=== PATIENT | male | born 1940 | race Caucasian/White ===

== ENCOUNTER 2018-04-11 17:31 | Emergency (ER) | payer MEDICARE ==
[2018-04-11 18:13] LABS: ADD MAN DIFF? NO
[2018-04-11 18:16] LABS: BASO # 0.1 x10^3/uL (0.0-0.2); BASO % 0 % (0-3); EOS # 0.1 x10^3/uL (0.0-0.7); EOS % 1 % (0-3); HEMATOCRIT 38.3 % (39.0-53.0); HEMOGLOBIN 13.2 g/dL (13.0-17.5); LYMPH # 1.7 x10^3/uL (1.0-4.8); LYMPH % 14 % (24-48); MEAN CORPUSCULAR HEMOGLOBIN 32 pg (25-35); MEAN CORPUSCULAR HGB CONC 34 g/dL (31-37); MEAN CORPUSCULAR VOLUME 94 fL (79-100); MONO # 0.8 x10^3/uL (0.0-1.1); MONO % 7 % (0-9); NEUT # 9.6 x10^3uL (1.8-7.7); NEUT % 78 % (31-73); PLATELET COUNT 195 x10^3/uL (140-400); RED BLOOD COUNT 4.06 x10^6/uL (4.30-5.70); RED CELL DISTRIBUTION WIDTH 12.7 % (11.5-14.5); WHITE BLOOD COUNT 12.3 x10^3/uL (4.0-11.0)
[2018-04-11 18:28] LABS: INR 1.1 (0.8-1.1); PROTHROMBIN TIME PATIENT 13.7 SEC (11.7-14.0)
[2018-04-11 18:32] LABS: ANION GAP 6 (6-14); BLOOD UREA NITROGEN 16 mg/dL (8-26); BUN/CREATININE RATIO 18 (6-20); CALCIUM 8.4 mg/dL (8.5-10.1); CARBON DIOXIDE 30 mmol/L (21-32); CHLORIDE 102 mmol/L (98-107); CREATININE 0.9 mg/dL (0.7-1.3); GFR 81.4; GLUCOSE 101 mg/dL (70-99); SODIUM 138 mmol/L (136-145)
[2018-04-11 18:39] LABS: TROPONINI < 0.017 ng/mL (0.000-0.055)
[2018-04-11 18:39] LABS: ALBUMIN 3.7 g/dL (3.4-5.0); ALBUMIN/GLOBULIN RATIO 1.2 (1.0-1.7); ALK PHOS 56 U/L (46-116); ALT (SGPT) 23 U/L (16-63); AST (SGOT) 13 U/L (15-37); TOTAL BILIRUBIN 0.4 mg/dL (0.2-1.0); TOTAL PROTEIN 6.7 g/dL (6.4-8.2)
[2018-04-11] MEDS: IV NORMAL SALINE 1000ML BAG 1,000 ML IV (19:45)
[2018-04-11 23:01] LABS: BILIRUBIN,URINE NEGATIVE (NEG); CLARITY,URINE CLEAR; GLUCOSE,URINE NEGATIVE (NEG); NITRITE,URINE NEGATIVE (NEG); PROTEIN,URINE NEGATIVE (NEG-TRACE); UROBILINOGEN,URINE 0.2 mg/dL (0.2 mg/dL)
[2018-04-11 23:06] LABS: COLOR,URINE STRAW
[2018-04-11 23:08] LABS: TROPONINI < 0.017 ng/mL (0.000-0.055)
[2018-04-11 23:08] LABS: BACTERIA,URINE 0 /HPF (0-FEW); RBC,URINE OCC /HPF (0-2); SQUAMOUS EPITHELIAL CELL,UR OCC /LPF; WBC,URINE 0 /HPF (0-4)
[2018-04-12 07:06] LABS: NEGATIVE OBC STREP NEG; POSITIVE OBC STREP POS
== END 2018-04-11 23:37 | disposition home or self-care (01) ==
LOC: ER 17:31
DX: R07.89 Other chest pain (principal); R50.9 Fever, unspecified; M25.512 Pain in left shoulder; I10 Essential (primary) hypertension; E11.9 Type 2 diabetes mellitus without complications; I25.10 Atherosclerotic heart disease of native coronary artery without angina pectoris
CPT/HCPCS: 36415; 71045; 80053; 81001; 84484; 85025; 85610; 87070; 87880; 93005; 99285-25; J7030

== ENCOUNTER 2019-07-05 22:02 | Inpatient (IN) | payer MEDICARE ==
[~2019-07-05] VITALS: Ht 162.6 cm; Wt 63.7 kg
[~2019-07-05 22:02] MED LIST: ASPI-482 PO; CHOL100013 PO; LEVE500T56 PO; METO-239 PO; OMEG500C PO; PANT40TA77 PO
[2019-07-05 23:27] LABS: BASO % 1 % (0-3); EOS # 0.1 x10^3/uL (0.0-0.7); EOS % 3 % (0-3); HEMATOCRIT 32.3 % (39.0-53.0); HEMOGLOBIN 11.3 g/dL (13.0-17.5); LYMPH # 1.4 x10^3/uL (1.0-4.8); LYMPH % 29 % (24-48); MEAN CORPUSCULAR HEMOGLOBIN 33 pg (25-35); MEAN CORPUSCULAR HGB CONC 35 g/dL (31-37); MEAN CORPUSCULAR VOLUME 94 fL (79-100); MONO # 0.5 x10^3/uL (0.0-1.1); MONO % 9 % (0-9); NEUT # 2.9 x10^3/uL (1.8-7.7); NEUT % 59 % (31-73); PLATELET COUNT 205 x10^3/uL (140-400); RED BLOOD COUNT 3.45 x10^6/uL (4.30-5.70); RED CELL DISTRIBUTION WIDTH 12.5 % (11.5-14.5)
[2019-07-05 23:35] LABS: CALCIUM 8.5 mg/dL (8.5-10.1); CREATININE 1.1 mg/dL (0.7-1.3); GFR 64.4; PROTHROMBIN TIME PATIENT 14.2 SEC (11.7-14.0)
[2019-07-05 23:40] LABS: ALBUMIN 3.2 g/dL (3.4-5.0); ALBUMIN/GLOBULIN RATIO 1.2 (1.0-1.7); TOTAL BILIRUBIN 0.1 mg/dL (0.2-1.0); TOTAL PROTEIN 5.8 g/dL (6.4-8.2)
--- NOTE | 2019-07-05 23:43 | PHYS DOC ---
Past Medical History Past Medical History: CAD, Diabetes-Type II, Hypertension, Seizure Past Surgical History: Other Additional Past Surgical Histo: Prostate Alcohol Use: None Drug Use: None Adult General Chief Complaint Chief Complaint: RECTAL BLEED HPI HPI Patient is an 79-year-old very active male who is normally very healthy presents tonight with rectal bleeding. He states he had 2 large bright red blood bowel movements earlier in the day and then 2 more this evening. He denies any pain. H e denies any nausea or vomiting. He states that this is never happened in the past. He states he feels his stomach grumbling but again there is no pain. He denies any chest pain or shortness of breath. He has not had any episodes where he feels lightheaded. 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.[] Review of Systems Review of Systems Constitutional: Denies fever or chills [] Eyes: Denies change in visual acuity, redness, or eye pain [] HENT: Denies nasal congestion or sore throat [] Respiratory: Denies cough or shortness of breath [] Cardiovascular: No additional information not addressed in HPI [] GI: Per history of present illness[] : Denies dysuria or hematuria [] Musculoskeletal: Denies back pain or joint pain [] Integument: Denies rash or skin lesions [] Neurologic: Denies headache, focal weakness or sensory changes [] Endocrine: Denies polyuria or polydipsia [] All other systems were reviewed and found to be within normal limits, except as documented in this note. Current Medications Current Medications Current Medications Medications (Trade) Dose Ordered Sig/Everardo Start Time Stop Time Status Last Admin Dose Admin Ondansetron HCl (Zofran) 4 mg PRN Q8HRS PRN 07/05/19 23:45 07/06/19 23:44 UNV Sodium Chloride 1,000 ml @ 125 mls/hr Q8H 07/05/19 23:35 07/06/19 23:34 UNV Allergies Allergies Allergies Coded Allergies Type Severity Reaction Last Updated Verified No Known Drug Allergies 09/03/15 No Physical Exam Physical Exam Constitutional: Well developed, well nourished, no acute distress, non-toxic appearance. [] HENT: Normocephalic, atraumatic, bilateral external ears normal, oropharynx moist, no oral exudates, nose normal. [] Eyes: PERRLA, EOMI, conjunctiva normal, no discharge. [] Neck: Normal range of motion, no tenderness, supple, no stridor. [] Cardiovascular:Heart rate regular rhythm, no murmur [] Lungs & Thorax: Bilateral breath sounds clear to auscultation [] Abdomen: Bowel sounds normal, soft, no tenderness, no masses, no pulsatile masses, there are no external hemorrhoids that I could see he did have quite a bit of bright red blood oozing from the rectum. [] Skin: Warm, dry, no erythema, no rash. [] Back: No tenderness, no CVA tenderness. [] Extremities: No tenderness, no cyanosis, no clubbing, ROM intact, no edema. [] Neurologic: Alert and oriented X 3, normal motor function, normal sensory fu nction, no focal deficits noted. [] Psychologic: Affect normal, judgement normal, mood normal. [] Current Patient Data Vital Signs Vital Signs Date Time Temp Pulse Resp B/P (MAP) Pulse Ox O2 Delivery O2 Flow Rate FiO2 07/05/19 22:13 98.2 64 12 128/68 (88) 97 Room Air 98.2 Lab Values Laboratory Tests Test 07/05/19 23:15 White Blood Count 5.0 x10^3/uL (4.0-11.0) Red Blood Count 3.45 x10^6/uL (4.30-5.70) L Hemoglobin 11.3 g/dL (13.0-17.5) L Hematocrit 32.3 % (39.0-53.0) L Mean Corpuscular Volume 94 fL (79-100) Mean Corpuscular Hemoglobin 33 pg (25-35) Mean Corpuscular Hemoglobin Concent 35 g/dL (31-37) Red Cell Distribution Width 12.5 % (11.5-14.5) Platelet Count 205 x10^3/uL (140-400) Neutrophils (%) (Auto) 59 % (31-73) Lymphocytes (%) (Auto) 29 % (24-48) Monocytes (%) (Auto) 9 % (0-9) Eosinophils (%) (Auto) 3 % (0-3) Basophils (%) (Auto) 1 % (0-3) Neutrophils # (Auto) 2.9 x10^3/uL (1.8-7.7) Lymphocytes # (Auto) 1.4 x10^3/uL (1.0-4.8) Monocytes # (Auto) 0.5 x10^3/uL (0.0-1.1) Eosinophils # (Auto) 0.1 x10^3/uL (0.0-0.7) Basophils # (Auto) 0.0 x10^3/uL (0.0-0.2) Prothrombin Time 14.2 SEC (11.7-14.0) H Prothrombin Time INR 1.1 (0.8-1.1) Sodium Level 143 mmol/L (136-145) Potassium Level 4.0 mmol/L (3.5-5.1) Chloride Level 107 mmol/L (98-107) Carbon Dioxide Level 29 mmol/L (21-32) Anion Gap 7 (6-14) Blood Urea Nitrogen 20 mg/dL (8-26) Creatinine 1.1 mg/dL (0.7-1.3) Estimated GFR (Cockcroft-Gault) 64.4 BUN/Creatinine Ratio 18 (6-20) Glucose Level 139 mg/dL (70-99) H Calcium Level 8.5 mg/dL (8.5-10.1) Total Bilirubin Pending Aspartate Amino Transferase (AST) Pending Alanine Aminotransferase (ALT) Pending Alkaline Phosphatase Pending Total Protein Pending Albumin Pending Albumin/Globulin Ratio Pending Laboratory Tests 07/05/19 23:15 Laboratory Tests 07/05/19 23:15 EKG EKG [] Radiology/Procedures Radiology/Procedures [] Course & Med Decision Making Course & Med Decision Making Pertinent Labs and Imaging studies reviewed. (See chart for details) [ED course: Evaluation reveals a 79-year-old male with rectal bleeding. His vital signs and H&H appear okay patient will need to be admitted with GI consult. We'll recheck his hemoglobin and hematocrit in the morning. I suspect he'll have a colonoscopy to definitively determine the source of bleeding.] Dragon Disclaimer Dragon Disclaimer This electronic medical record was generated, in whole or in part, using a voice recognition dictation system. Departure Departure Impression: Primary Impression: GI bleed Disposition: ADMITTED INPATIENT Admitting Physician: MARKELL Condition: GUARDED Referrals: FOUNTAIN,SEVERINO A MD (PCP) Problem Qualifiers Primary Impression: GI bleed GI bleed type/associated pathology: anorectal hemorrhage Qualified Codes: K62.5 - Hemorrhage of anus and rectum EVETTE WEISS DO Jul 05, 2019 23:43
[2019-07-05] MEDS ORDERED: ONDANSETRON PF 4 MG/2 ML VIAL. IV PRN (23:45)
[2019-07-06] MEDS: IV NORMAL SALINE 1000ML BAG 1,000 ML IV SCH ×3 (00:15→20:49)
--- NOTE | 2019-07-06 00:55 | NUR ---
The patient, BASHIR MAYORGA, 79 y/o, M admitted by TANIA MENCHACA III, DO, was given written information regarding hospital policies, unit procedures and contact persons. Patient arrived to room by Wheelchair at this time assisted by ED staff member. Valuables were checked and noted. Family present at bedside. Patient is in bed watching TV, states no needs at this time. This RN will continue to monitor the patient at this time.
[2019-07-06] MEDS ORDERED: SIMV10TA15 PO (01:33)
[2019-07-06] MEDS ORDERED: MULT-475 PO (01:33)
[2019-07-06] MEDS ORDERED: GARL10002 PO (01:33)
[2019-07-06] MEDS ORDERED: ASPI-612 PO (01:33)
[2019-07-06 03:00] VITALS: BP 125/65
[2019-07-06 05:35] LABS: BASO % 1 % (0-3); EOS # 0.2 x10^3/uL (0.0-0.7); EOS % 4 % (0-3); HEMATOCRIT 28.8 % (39.0-53.0); HEMOGLOBIN 10.1 g/dL (13.0-17.5); LYMPH # 1.5 x10^3/uL (1.0-4.8); LYMPH % 35 % (24-48); MEAN CORPUSCULAR HEMOGLOBIN 33 pg (25-35); MEAN CORPUSCULAR HGB CONC 35 g/dL (31-37); MEAN CORPUSCULAR VOLUME 93 fL (79-100); MONO # 0.4 x10^3/uL (0.0-1.1); MONO % 10 % (0-9); NEUT # 2.2 x10^3/uL (1.8-7.7); NEUT % 51 % (31-73); PLATELET COUNT 187 x10^3/uL (140-400); RED BLOOD COUNT 3.09 x10^6/uL (4.30-5.70); RED CELL DISTRIBUTION WIDTH 12.6 % (11.5-14.5); WHITE BLOOD COUNT 4.3 x10^3/uL (4.0-11.0)
[2019-07-06 07:00] VITALS: BP 110/59
--- NOTE | 2019-07-06 09:12 | PDOC2 ---
GI CONSULT Reason For Consult: Rectal bleeding HPI: HPI: Pleasant 79 y/o male admitted through ER. 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 Then went home and barely made it to the restroom - passed significant amount of bright red blood. Lots of "gurgling." Recurred 3 more times - perhaps once with stool. No bleeding since 9:30 p.m. yesterday. Denies n/v, reflux/heartb urn, dysphagia, abd pain, diarrhea, constipation, change in appetite, or weight loss. Takes ASA 81mg QD. Colonoscopy 05/2014 for hematochezia/melena, h/o colon polyps (Dr. Waller): normal mucosa noted in the whole colon, 3mm adenomatous polyp in proximal descending colon, sigmoid and descending colon diverticulosis (moderate severity), GRade 1 internal hemorrhoids. EGD 08/2015 for melena (Dr. Cedeno): M-W tear, small hiatal hernia, normal duodenum. No GB, liver, pancreas, or PUD history. Hgb 11.3 to 10.1, normal INR and BUN. PMH: PMH: CAD, ERIS, DM, BPH, OA, seizure corneal surgery, TURP, vasectomy, cataracts FH: Family History: Cancer (colon - mother), CAD, DM, Other (Crohn's - mother) Social History: Smoke: No ALCOHOL: none ROS: GEN: Denies fevers, chills, sweats HEENT: Denies blurred vision, sore throat CV: Denies chest pain RESP: Denies shortness of air, cough GI: Per HPI : Denies hematuria, dysuria ENDO: Denies weight changes NEURO: Denies confusion, dizziness MSK: Denies weakness, joint pain/swelling SKIN: Denies jaundice, pruritus Vitals: Vitals: Vital Signs Date Time Temp Pulse Resp B/P (MAP) Pulse Ox O2 Delivery O2 Flow Rate FiO2 07/06/19 03:00 98.6 61 18 125/65 (85) 95 Room Air 98.6 Labs: Labs: Laboratory Tests Test 07/05/19 23:15 07/06/19 03:30 White Blood Count 5.0 x10^3/uL (4.0-11.0) 4.3 x10^3/uL (4.0-11.0) Red Blood Count 3.45 x10^6/uL (4.30-5.70) 3.09 x10^6/uL (4.30-5.70) Hemoglobin 11.3 g/dL (13.0-17.5) 10.1 g/dL (13.0-17.5) Hematocrit 32.3 % (39.0-53.0) 28.8 % (39.0-53.0) Mean Corpuscular Volume 94 fL (79-100) 93 fL (79-100) Mean Corpuscular Hemoglobin 33 pg (25-35) 33 pg (25-35) Mean Corpuscular Hemoglobin Concent 35 g/dL (31-37) 35 g/dL (31-37) Red Cell Distribution Width 12.5 % (11.5-14.5) 12.6 % (11.5-14.5) Platelet Count 205 x10^3/uL (140-400) 187 x10^3/uL (140-400) Neutrophils (%) (Auto) 59 % (31-73) 51 % (31-73) Lymphocytes (%) (Auto) 29 % (24-48) 35 % (24-48) Monocytes (%) (Auto) 9 % (0-9) 10 % (0-9) Eosinophils (%) (Auto) 3 % (0-3) 4 % (0-3) Basophils (%) (Auto) 1 % (0-3) 1 % (0-3) Neutrophils # (Auto) 2.9 x10^3/uL (1.8-7.7) 2.2 x10^3/uL (1.8-7.7) Lymphocytes # (Auto) 1.4 x10^3/uL (1.0-4.8) 1.5 x10^3/uL (1.0-4.8) Monocytes # (Auto) 0.5 x10^3/uL (0.0-1.1) 0.4 x10^3/uL (0.0-1.1) Eosinophils # (Auto) 0.1 x10^3/uL (0.0-0.7) 0.2 x10^3/uL (0.0-0.7) Basophils # (Auto) 0.0 x10^3/uL (0.0-0.2) 0.0 x10^3/uL (0.0-0.2) Prothrombin Time 14.2 SEC (11.7-14.0) Prothromb Time International Ratio 1.1 (0.8-1.1) Sodium Level 143 mmol/L (136-145) Potassium Level 4.0 mmol/L (3.5-5.1) Chloride Level 107 mmol/L (98-107) Carbon Dioxide Level 29 mmol/L (21-32) Anion Gap 7 (6-14) Blood Urea Nitrogen 20 mg/dL (8-26) Creatinine 1.1 mg/dL (0.7-1.3) Estimated GFR (Cockcroft-Gault) 64.4 BUN/Creatinine Ratio 18 (6-20) Glucose Level 139 mg/dL (70-99) Calcium Level 8.5 mg/dL (8.5-10.1) Total Bilirubin 0.1 mg/dL (0.2-1.0) Aspartate Amino Transf (AST/SGOT) 16 U/L (15-37) Alanine Aminotransferase (ALT/SGPT) 18 U/L (16-63) Alkaline Phosphatase 62 U/L (46-116) Total Protein 5.8 g/dL (6.4-8.2) Albumin 3.2 g/dL (3.4-5.0) Albumin/Globulin Ratio 1.2 (1.0-1.7) Allergies: Coded Allergies: No Known Drug Allergies (Unverified , 09/03/15) Medications: Current Medications Medications (Trade) Dose Ordered Sig/Everardo Route PRN Reason Start Time Stop Time Status Last Admin Dose Admin Sodium Chloride 1,000 ml @ 125 mls/hr Q8H IV 07/05/19 23:45 07/06/19 23:44 07/06/19 00:15 PE: GEN: NAD HEENT: Atraumatic, PERRL LUNGS: CTAB HEART: RRR ABD: NABS, S/ND/NT EXTREMITY: No edema SKIN: No rashes, no jaundice NEURO/PSYCH: A & O 3 A/P: A/P: Hematochezia Anemia CRC screen, h/o adenomatous polyps - last colonoscopy 2013 Diverticulosis, hemorrhoids H/o CAD on ASA -- ?diverticular bleed - no abd imaging here but known diverticulosis from previous colonoscopy. No bleeding for ~12 hours - okay to observe for now. Consider clear liquids, monitor Hgb. If bleeding recurs, check bleeding scan. Empiric PPI, hold ASA. SANDRA BREWER Jul 06, 2019 09:12
--- NOTE | 2019-07-06 10:06 | PDOC1 ---
History and Physical Date of Admission Date of Admission DATE: 07/06/19 TIME: 10:05 Identification/Chief Complaint Chief Complaint seen in er , 2 large bright red blood bowel movements earlier in the day and then 2 more 07/05 . He denies any pain. He denies any nausea or vomiting. He states that this is never happened in the past. He states he feels his stomach grumbling but again there is no pain. He denies any chest pain or shortness of breath. He has not had any episodes where he feels lightheaded. Colonoscopy 05/2014 for hematochezia/melena, h/o colon polyps FEELING BETTER THIS AFTERNOON Past Medical History Past Medical History Past Medical History Past Medical History Past Medical History: CAD, Diabetes-Type II, Hypertension, Seizure Past Surgical History: Other Additional Past Surgical Histo: Prostate Alcohol Use: None Drug Use: None Pulmonary: Other CENTRAL NERVOUS SYSTEM: Seizure Musculoskeletal: Osteoarthritis Renal/: Benign prostatic enlarg. Endocrine: Diabetes Past Surgical History Past Surgical History: Other Family History Family History: Cancer, Coronary Artery Disease, Diabetes, High Cholestrol Social History Smoke: No ALCOHOL: none Drugs: None Current Problem List Problem List Problems Medical Problems: (1) GI bleed Status: Acute Current Medications Current Medications Current Medications Ondansetron HCl (Zofran) 4 mg PRN Q8HRS PRN IV NAUSEA/VOMITING; Start 07/05/19 at 23:45; Stop 07/06/19 at 23:44 Sodium Chloride 1,000 ml @ 125 mls/hr Q8H IV Last administered on 07/06/19at 09:17; Start 07/05/19 at 23:45; Stop 07/06/19 at 23:44 Pantoprazole Sodium (PROTONIX VIAL for IV PUSH) 40 mg DAILYAC IVP ; Start 07/07/19 at 07:30; Status UNV Active Scripts Active Reported Garlic 1,000 Mg Capsule 1,000 Mg PO DAILY One Daily Multivitamin (Multivitamin) 1 Each Tablet 1 Each PO DAILY Simvastatin 10 Mg Tablet 10 Mg PO DAILY Aspirin Ec (Aspirin) 81 Mg Tablet.dr 81 Mg PO DAILY Vitamin D (Cholecalciferol (Vitamin D3)) 1,000 Unit Capsule 1 Cap PO DAILY Keppra (Levetiracetam) 500 Mg Tablet 500 Mg PO BID Allergies Allergies: Coded Allergies: No Known Drug Allergies (Unverified , 09/03/15) ROS Review of System Review of Systems Review of Systems Constitutional: Denies fever or chills [] Eyes: Denies change in visual acuity, redness, or eye pain [] HENT: Denies nasal congestion or sore throat [] Respiratory: Denies cough or shortness of breath [] Cardiovascular: No additional information not addressed in HPI [] GI: Per history of present illness[] : Denies dysuria or hematuria [] Musculoskeletal: Denies back pain or joint pain [] Integument: Denies rash or skin lesions [] Neurologic: Denies headache, focal weakness or sensory changes [] Endocrine: Denies polyuria or polydipsia [] 14 pt systems were reviewed and found to be within normal limits, except as do cumented ALLERGY AND IMMUNOLOGY: No: Hives, Insect Bite Sensitivity, Itchy/Watery Eyes, Nasal Congestion, Post Nasal Drip, Seasonal Allergies, Other Gastrointestinal: Yes Melena Physical Exam Physical Exam Physical Exam Physical Exam Constitutional: Well developed, well nourished, no acute distress, non-toxic appearance. [] HENT: Normocephalic, atraumatic, bilateral external ears normal, oropharynx moist, no oral exudates, nose normal. [] Eyes: PERRLA, EOMI, conjunctiva normal, no discharge. [] Neck: Normal range of motion, no tenderness, supple, no stridor. [] Cardiovascular:Heart rate regular rhythm, no murmur [] Lungs & Thorax: Bilateral breath sounds clear to auscultation [] Abdomen: Bowel sounds normal, soft, no tenderness, no masses, no pulsatile masses, there are no external hemorrhoids that I could see he did have quite a bit of bright red blood oozing from the rectum. [] Skin: Warm, dry, no erythema, no rash. [] Back: No tenderness, no CVA tenderness. [] Extremities: No tenderness, no cyanosis, no clubbing, ROM intact, no edema. [] Neurologic: Alert and oriented X 3, normal motor function, normal sensory function, no focal deficits noted. [] Psychologic: Affect normal, judgement normal, mood normal. [] General: Alert, Oriented X3, Cooperative, No acute distress HEENT: EOMI, Mucous membr. moist/pink Lungs: Clear to auscultation, Normal air movement Abdomen: Soft Rectal Exam: not examined Extremities: No cyanosis Neuro: Cranial nerves 3-12 NL Psych/Mental Status: Mental status NL, Mood NL Vitals Vitals Vital Signs Date Time Temp Pulse Resp B/P (MAP) Pulse Ox O2 Delivery O2 Flow Rate FiO2 07/06/19 07:00 97.7 59 17 110/59 (76) 95 Room Air 97.7 Labs Labs Laboratory Tests Test 07/05/19 23:15 07/06/19 03:30 White Blood Count 5.0 x10^3/uL (4.0-11.0) 4.3 x10^3/uL (4.0-11.0) Red Blood Count 3.45 x10^6/uL (4.30-5.70) 3.09 x10^6/uL (4.30-5.70) Hemoglobin 11.3 g/dL (13.0-17.5) 10.1 g/dL (13.0-17.5) Hematocrit 32.3 % (39.0-53.0) 28.8 % (39.0-53.0) Mean Corpuscular Volume 94 fL (79-100) 93 fL (79-100) Mean Corpuscular Hemoglobin 33 pg (25-35) 33 pg (25-35) Mean Corpuscular Hemoglobin Concent 35 g/dL (31-37) 35 g/dL (31-37) Red Cell Distribution Width 12.5 % (11.5-14.5) 12.6 % (11.5-14.5) Platelet Count 205 x10^3/uL (140-400) 187 x10^3/uL (140-400) Neutrophils (%) (Auto) 59 % (31-73) 51 % (31-73) Lymphocytes (%) (Auto) 29 % (24-48) 35 % (24-48) Monocytes (%) (Auto) 9 % (0-9) 10 % (0-9) Eosinophils (%) (Auto) 3 % (0-3) 4 % (0-3) Basophils (%) (Auto) 1 % (0-3) 1 % (0-3) Neutrophils # (Auto) 2.9 x10^3/uL (1.8-7.7) 2.2 x10^3/uL (1.8-7.7) Lymphocytes # (Auto) 1.4 x10^3/uL (1.0-4.8) 1.5 x10^3/uL (1.0-4.8) Monocytes # (Auto) 0.5 x10^3/uL (0.0-1.1) 0.4 x10^3/uL (0.0-1.1) Eosinophils # (Auto) 0.1 x10^3/uL (0.0-0.7) 0.2 x10^3/uL (0.0-0.7) Basophils # (Auto) 0.0 x10^3/uL (0.0-0.2) 0.0 x10^3/uL (0.0-0.2) Prothrombin Time 14.2 SEC (11.7-14.0) Prothromb Time International Ratio 1.1 (0.8-1.1) Sodium Level 143 mmol/L (136-145) Potassium Level 4.0 mmol/L (3.5-5.1) Chloride Level 107 mmol/L (98-107) Carbon Dioxide Level 29 mmol/L (21-32) Anion Gap 7 (6-14) Blood Urea Nitrogen 20 mg/dL (8-26) Creatinine 1.1 mg/dL (0.7-1.3) Estimated GFR (Cockcroft-Gault) 64.4 BUN/Creatinine Ratio 18 (6-20) Glucose Level 139 mg/dL (70-99) Calcium Level 8.5 mg/dL (8.5-10.1) Total Bilirubin 0.1 mg/dL (0.2-1.0) Aspartate Amino Transf (AST/SGOT) 16 U/L (15-37) Alanine Aminotransferase (ALT/SGPT) 18 U/L (16-63) Alkaline Phosphatase 62 U/L (46-116) Total Protein 5.8 g/dL (6.4-8.2) Albumin 3.2 g/dL (3.4-5.0) Albumin/Globulin Ratio 1.2 (1.0-1.7) Laboratory Tests Test 07/05/19 23:15 07/06/19 03:30 White Blood Count 5.0 x10^3/uL (4.0-11.0) 4.3 x10^3/uL (4.0-11.0) Red Blood Count 3.45 x10^6/uL (4.30-5.70) 3.09 x10^6/uL (4.30-5.70) Hemoglobin 11.3 g/dL (13.0-17.5) 10.1 g/dL (13.0-17.5) Hematocrit 32.3 % (39.0-53.0) 28.8 % (39.0-53.0) Mean Corpuscular Volume 94 fL (79-100) 93 fL (79-100) Mean Corpuscular Hemoglobin 33 pg (25-35) 33 pg (25-35) Mean Corpuscular Hemoglobin Concent 35 g/dL (31-37) 35 g/dL (31-37) Red Cell Distribution Width 12.5 % (11.5-14.5) 12.6 % (11.5-14.5) Platelet Count 205 x10^3/uL (140-400) 187 x10^3/uL (140-400) Neutrophils (%) (Auto) 59 % (31-73) 51 % (31-73) Lymphocytes (%) (Auto) 29 % (24-48) 35 % (24-48) Monocytes (%) (Auto) 9 % (0-9) 10 % (0-9) Eosinophils (%) (Auto) 3 % (0-3) 4 % (0-3) Basophils (%) (Auto) 1 % (0-3) 1 % (0-3) Neutrophils # (Auto) 2.9 x10^3/uL (1.8-7.7) 2.2 x10^3/uL (1.8-7.7) Lymphocytes # (Auto) 1.4 x10^3/uL (1.0-4.8) 1.5 x10^3/uL (1.0-4.8) Monocytes # (Auto) 0.5 x10^3/uL (0.0-1.1) 0.4 x10^3/uL (0.0-1.1) Eosinophils # (Auto) 0.1 x10^3/uL (0.0-0.7) 0.2 x10^3/uL (0.0-0.7) Basophils # (Auto) 0.0 x10^3/uL (0.0-0.2) 0.0 x10^3/uL (0.0-0.2) Prothrombin Time 14.2 SEC (11.7-14.0) Prothromb Time International Ratio 1.1 (0.8-1.1) Sodium Level 143 mmol/L (136-145) Potassium Level 4.0 mmol/L (3.5-5.1) Chloride Level 107 mmol/L (98-107) Carbon Dioxide Level 29 mmol/L (21-32) Anion Gap 7 (6-14) Blood Urea Nitrogen 20 mg/dL (8-26) Creatinine 1.1 mg/dL (0.7-1.3) Estimated GFR (Cockcroft-Gault) 64.4 BUN/Creatinine Ratio 18 (6-20) Glucose Level 139 mg/dL (70-99) Calcium Level 8.5 mg/dL (8.5-10.1) Total Bilirubin 0.1 mg/dL (0.2-1.0) Aspartate Amino Transf (AST/SGOT) 16 U/L (15-37) Alanine Aminotransferase (ALT/SGPT) 18 U/L (16-63) Alkaline Phosphatase 62 U/L (46-116) Total Protein 5.8 g/dL (6.4-8.2) Albumin 3.2 g/dL (3.4-5.0) Albumin/Globulin Ratio 1.2 (1.0-1.7) Images Images PROCEDURE Procedure EGD Indication: Melena/syncope Meds: per anesthesia; see their record. Findings: E--GEJ at 39cm. Healing Yanci-Castro tear on lesser curve aspect of GE junction. G--Small hiatal hernia, otherwise normal. D--Normal to third portion. Tolerated well. Imp: Yanci-Castro syndrome Hiatal hernia. Rec: OK to dismiss. No other therapy needed. F/u with Dr. Waller when due for next surveillance colonoscopy, otherwise prn. Thanks. #[id number] KIMO VIEIRA MD Sep 03, 2015 12:10 SIGNED BY: KIMO VIEIRA MD DATE: 09/03/15 1210 VTE Prophylaxis Ordered VTE Prophylaxis Devices: Contraindicated VTE Pharmacological Prophylaxi: Contraindicated Assessment/Plan Assessment/Plan Impression: GI bleed, ACUTE HX COLON POLYPS Yanci-Castro syndrome 2015 Hiatal hernia. ADMITTED consult GI SERIAL H/H IV PROTONIX home meds, hold asa 55 MIN PT EXAM, CHART REVIEW, > 50% OF TIME SPENT WITH EXAM, CHART REVIEW, PT CARE COORDINATION JONN ARMSTRONG MD Jul 06, 2019 10:06
[2019-07-06 11:00] VITALS: BP 104/96
[2019-07-06] MEDS ORDERED: PANTOPRAZOLE IV PUSH 40 MG VIAL. IVP SCH (11:30)
--- NOTE | 2019-07-06 11:31 | NUR ---
SS following for discharge planning. SS reviewed pt chart. Pt is from home with spouse and is currently on room air. SS will continue to follow for discharge planning.
[2019-07-06 15:00] VITALS: BP 122/59
[2019-07-06 19:00] VITALS: BP 111/50
[2019-07-06] MEDS: levETIRAcetam 500 MG TABLET PO SCH (20:48)
[2019-07-06 23:00] VITALS: BP 118/60
[2019-07-07 03:00] VITALS: BP 110/58
--- NOTE | 2019-07-07 04:21 | NUR ---
Pt had 2 bloody stools during shift, one @ 2100 and the next was @ midnight. And a small amount of stool with blood @ 3am.
[2019-07-07 04:57] LABS: HEMATOCRIT 29.2 % (39.0-53.0); HEMOGLOBIN 10.1 g/dL (13.0-17.5); RED BLOOD COUNT 3.13 x10^6/uL (4.30-5.70); RED CELL DISTRIBUTION WIDTH 12.6 % (11.5-14.5)
[2019-07-07 05:16] LABS: CREATININE 0.6 mg/dL (0.7-1.3); GFR 129.6; POTASSIUM 3.7 mmol/L (3.5-5.1)
[2019-07-07] MEDS ORDERED: PANTOPRAZOLE 40 MG TABLET.DR. PO SCH (07:30)
[2019-07-07] MEDS ORDERED: MULTIVITAMIN with MINERAL TABLET. PO SCH (09:00)
[2019-07-07] MEDS ORDERED: CHOLECALCIFEROL (VITAMIN D3) 1,000 UNIT TABLET PO SCH (09:00)
[2019-07-07] MEDS ORDERED: SIMVASTATIN 10 MG TABLET PO SCH (09:00)
[2019-07-07] MEDS: levETIRAcetam 500 MG TABLET PO SCH (10:42)
--- NOTE | 2019-07-07 10:54 | PDOC ---
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 ACUTE BLOOD LOSS ANEMIA ADMITTED consult GI, home today if ok with GI SERIAL H/H IV PROTONIX home meds, hold asa "small amount of blood in stool this AM < A teaspoonful" 07/07 32 MIN PT EXAM, CHART REVIEW, > 50% OF TIME SPENT WITH EXAM, CHART REVIEW, PT CARE COORDINATION Vitals Vitals Vital Signs Date Time Temp Pulse Resp B/P (MAP) Pulse Ox O2 Delivery O2 Flow Rate FiO2 07/07/19 03:00 98.1 64 18 110/58 (75) 93 Room Air 98.1 Physical Exam General: Alert, Oriented X3, Cooperative, No acute distress Heart: Regular rate, Normal S1 Lungs: Clear Abdomen: Normal bowel sounds, Soft Extremities: No cyanosis, No edema Skin: No significant lesion Labs LABS Laboratory Tests Test 07/07/19 04:00 White Blood Count 5.0 x10^3/uL (4.0-11.0) Red Blood Count 3.13 x10^6/uL (4.30-5.70) Hemoglobin 10.1 g/dL (13.0-17.5) Hematocrit 29.2 % (39.0-53.0) Mean Corpuscular Volume 93 fL (79-100) Mean Corpuscular Hemoglobin 32 pg (25-35) Mean Corpuscular Hemoglobin Concent 35 g/dL (31-37) Red Cell Distribution Width 12.6 % (11.5-14.5) Platelet Count 172 x10^3/uL (140-400) Sodium Level 143 mmol/L (136-145) Potassium Level 3.7 mmol/L (3.5-5.1) Chloride Level 109 mmol/L (98-107) Carbon Dioxide Level 30 mmol/L (21-32) Anion Gap 4 (6-14) Blood Urea Nitrogen 9 mg/dL (8-26) Creatinine 0.6 mg/dL (0.7-1.3) Estimated GFR (Cockcroft-Gault) 129.6 Glucose Level 94 mg/dL (70-99) Calcium Level 8.0 mg/dL (8.5-10.1) Assessment and Plan Assessmemt and Plan Problems Medical Problems: (1) GI bleed Status: Acute Comment Review of Relevant I have reviewed the following items lindy (where applicable) has been applied. Labs Laboratory Tests Test 07/05/19 23:15 07/06/19 03:30 07/07/19 04:00 White Blood Count 5.0 x10^3/uL (4.0-11.0) 4.3 x10^3/uL (4.0-11.0) 5.0 x10^3/uL (4.0-11.0) Red Blood Count 3.45 x10^6/uL (4.30-5.70) 3.09 x10^6/uL (4.30-5.70) 3.13 x10^6/uL (4.30-5.70) Hemoglobin 11.3 g/dL (13.0-17.5) 10.1 g/dL (13.0-17.5) 10.1 g/dL (13.0-17.5) Hematocrit 32.3 % (39.0-53.0) 28.8 % (39.0-53.0) 29.2 % (39.0-53.0) Mean Corpuscular Volume 94 fL (79-100) 93 fL (79-100) 93 fL (79-100) Mean Corpuscular Hemoglobin 33 pg (25-35) 33 pg (25-35) 32 pg (25-35) Mean Corpuscular Hemoglobin Concent 35 g/dL (31-37) 35 g/dL (31-37) 35 g/dL (31-37) Red Cell Distribution Width 12.5 % (11.5-14.5) 12.6 % (11.5-14.5) 12.6 % (11.5-14.5) Platelet Count 205 x10^3/uL (140-400) 187 x10^3/uL (140-400) 172 x10^3/uL (140-400) Neutrophils (%) (Auto) 59 % (31-73) 51 % (31-73) Lymphocytes (%) (Auto) 29 % (24-48) 35 % (24-48) Monocytes (%) (Auto) 9 % (0-9) 10 % (0-9) Eosinophils (%) (Auto) 3 % (0-3) 4 % (0-3) Basophils (%) (Auto) 1 % (0-3) 1 % (0-3) Neutrophils # (Auto) 2.9 x10^3/uL (1.8-7.7) 2.2 x10^3/uL (1.8-7.7) Lymphocytes # (Auto) 1.4 x10^3/uL (1.0-4.8) 1.5 x10^3/uL (1.0-4.8) Monocytes # (Auto) 0.5 x10^3/uL (0.0-1.1) 0.4 x10^3/uL (0.0-1.1) Eosinophils # (Auto) 0.1 x10^3/uL (0.0-0.7) 0.2 x10^3/uL (0.0-0.7) Basophils # (Auto) 0.0 x10^3/uL (0.0-0.2) 0.0 x10^3/uL (0.0-0.2) Prothrombin Time 14.2 SEC (11.7-14.0) Prothromb Time International Ratio 1.1 (0.8-1.1) Sodium Level 143 mmol/L (136-145) 143 mmol/L (136-145) Potassium Level 4.0 mmol/L (3.5-5.1) 3.7 mmol/L (3.5-5.1) Chloride Level 107 mmol/L (98-107) 109 mmol/L (98-107) Carbon Dioxide Level 29 mmol/L (21-32) 30 mmol/L (21-32) Anion Gap 7 (6-14) 4 (6-14) Blood Urea Nitrogen 20 mg/dL (8-26) 9 mg/dL (8-26) Creatinine 1.1 mg/dL (0.7-1.3) 0.6 mg/dL (0.7-1.3) Estimated GFR (Cockcroft-Gault) 64.4 129.6 BUN/Creatinine Ratio 18 (6-20) Glucose Level 139 mg/dL (70-99) 94 mg/dL (70-99) Calcium Level 8.5 mg/dL (8.5-10.1) 8.0 mg/dL (8.5-10.1) Total Bilirubin 0.1 mg/dL (0.2-1.0) Aspartate Amino Transf (AST/SGOT) 16 U/L (15-37) Alanine Aminotransferase (ALT/SGPT) 18 U/L (16-63) Alkaline Phosphatase 62 U/L (46-116) Total Protein 5.8 g/dL (6.4-8.2) Albumin 3.2 g/dL (3.4-5.0) Albumin/Globulin Ratio 1.2 (1.0-1.7) Laboratory Tests Test 07/07/19 04:00 White Blood Count 5.0 x10^3/uL (4.0-11.0) Red Blood Count 3.13 x10^6/uL (4.30-5.70) Hemoglobin 10.1 g/dL (13.0-17.5) Hematocrit 29.2 % (39.0-53.0) Mean Corpuscular Volume 93 fL (79-100) Mean Corpuscular Hemoglobin 32 pg (25-35) Mean Corpuscular Hemoglobin Concent 35 g/dL (31-37) Red Cell Distribution Width 12.6 % (11.5-14.5) Platelet Count 172 x10^3/uL (140-400) Sodium Level 143 mmol/L (136-145) Potassium Level 3.7 mmol/L (3.5-5.1) Chloride Level 109 mmol/L (98-107) Carbon Dioxide Level 30 mmol/L (21-32) Anion Gap 4 (6-14) Blood Urea Nitrogen 9 mg/dL (8-26) Creatinine 0.6 mg/dL (0.7-1.3) Estimated GFR (Cockcroft-Gault) 129.6 Glucose Level 94 mg/dL (70-99) Calcium Level 8.0 mg/dL (8.5-10.1) Medications Current Medications Ondansetron HCl (Zofran) 4 mg PRN Q8HRS PRN IV NAUSEA/VOMITING; Start 07/05/19 at 23:45; Stop 07/06/19 at 23:44; Status DC Sodium Chloride 1,000 ml @ 125 mls/hr Q8H IV Last administered on 07/06/19 20:49; Start 07/05/19 at 23:45; Stop 07/06/19 at 23:44; Status DC Pantoprazole Sodium (PROTONIX VIAL for IV PUSH) 40 mg DAILYAC IVP Last administered on 07/06/19 12:46; Start 07/06/19 at 11:30; Stop 07/06/19 at 16:29; Status DC Levetiracetam (Keppra) 500 mg BID PO Last administered on 07/07/19 10:42; Start 07/06/19 at 21:00 Simvastatin (Zocor) 10 mg DAILY PO Last administered on 07/07/19 10:42; Start 07/07/19 at 09:00 Vitamin D (Vitamin D3) 1,000 unit DAILY PO Last administered on 07/07/19 10:42; Start 07/07/19 at 09:00 Multivitamins (Thera M Plus) 1 tab DAILY PO Last administered on 07/07/19 10:42; Start 07/07/19 at 09:00 Pantoprazole Sodium (Protonix) 40 mg DAILYAC PO Last administered on 07/07/19 07:25; Start 07/07/19 at 07:30 Active Scripts Active Reported Garlic 1,000 Mg Capsule 1,000 Mg PO DAILY One Daily Multivitamin (Multivitamin) 1 Each Tablet 1 Each PO DAILY Simvastatin 10 Mg Tablet 10 Mg PO DAILY Aspirin Ec (Aspirin) 81 Mg Tablet.dr 81 Mg PO DAILY Vitamin D (Cholecalciferol (Vitamin D3)) 1,000 Unit Capsule 1 Cap PO DAILY Keppra (Levetiracetam) 500 Mg Tablet 500 Mg PO BID Vitals/I & O Vital Sign - Last 24 Hours 07/06/19 07/06/19 07/06/19 07/06/19 11:00 15:00 19:00 20:00 Temp 98.0 97.7 98.2 98.0 97.7 98.2 Pulse 59 60 63 Resp 17 18 18 B/P (MAP) 104/96 (99) 122/59 (80) 111/50 (70) Pulse Ox 95 96 96 O2 Delivery Room Air Room Air Room Air Room Air 07/06/19 07/07/19 23:00 03:00 Temp 98.1 98.1 98.1 98.1 Pulse 62 64 Resp 18 18 B/P (MAP) 118/60 (79) 110/58 (75) Pulse Ox 95 93 O2 Delivery Room Air Room Air Intake and Output 07/06/19 07/06/19 07/07/19 14:59 22:59 06:59 Intake Total 200 ml 0 ml Balance 200 ml 0 ml JONN ARMSTRONG MD Jul 07, 2019 10:54
[2019-07-07 11:00] VITALS: BP 99/53
--- NOTE | 2019-07-07 11:56 | PDOC ---
GI PROGRESS NOTES Date Date/Time DATE: 07/07/19 TIME: 11:55 Subjective Subjective no further bleeding tolerating diet Objective Vitals Vital Signs Date Time Temp Pulse Resp B/P (MAP) Pulse Ox O2 Delivery O2 Flow Rate FiO2 07/07/19 03:00 98.1 64 18 110/58 (75) 93 Room Air 98.1 07/06/19 23:00 98.1 62 18 118/60 (79) 95 Room Air 98.1 07/06/19 20:00 Room Air 07/06/19 19:00 98.2 63 18 111/50 (70) 96 Room Air 98.2 07/06/19 15:00 97.7 60 18 122/59 (80) 96 Room Air 97.7 Labs Labs Laboratory Tests Test 07/07/19 04:00 White Blood Count 5.0 x10^3/uL (4.0-11.0) Red Blood Count 3.13 x10^6/uL (4.30-5.70) Hemoglobin 10.1 g/dL (13.0-17.5) Hematocrit 29.2 % (39.0-53.0) Mean Corpuscular Volume 93 fL (79-100) Mean Corpuscular Hemoglobin 32 pg (25-35) Mean Corpuscular Hemoglobin Concent 35 g/dL (31-37) Red Cell Distribution Width 12.6 % (11.5-14.5) Platelet Count 172 x10^3/uL (140-400) Sodium Level 143 mmol/L (136-145) Potassium Level 3.7 mmol/L (3.5-5.1) Chloride Level 109 mmol/L (98-107) Carbon Dioxide Level 30 mmol/L (21-32) Anion Gap 4 (6-14) Blood Urea Nitrogen 9 mg/dL (8-26) Creatinine 0.6 mg/dL (0.7-1.3) Estimated GFR (Cockcroft-Gault) 129.6 Glucose Level 94 mg/dL (70-99) Calcium Level 8.0 mg/dL (8.5-10.1) Physical Exam Physical Exam alert Assessment Assessment Diverticular bleeding which resolved prior to admission Hgb now stable agree with d/c plans BOBBY AYERS MD Jul 07, 2019 11:56
--- NOTE | 2019-07-07 14:58 | PDOC3 ---
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 ACUTE BLOOD LOSS ANEMIA ADMITTED consult GI, home today if ok with GI 07/07 SERIAL H/H PO PROTONIX home meds, hold asa "small amount of blood in stool this AM < A teaspoonful" 07/07 32 MIN PT EXAM, CHART REVIEW D/C PLANNING , > 50% OF TIME SPENT WITH EXAM, CHART REVIEW, PT CARE COORDINATION Vitals Vitals Vital Signs Date Time Temp Pulse Resp B/P (MAP) Pulse Ox O2 Delivery O2 Flow Rate FiO2 07/07/19 03:00 98.1 64 18 110/58 (75) 93 Room Air 98.1 Physical Exam General: Alert, Oriented X3, Cooperative, No acute distress Heart: Regular rate, Normal S1 Lungs: Clear Abdomen: Normal bowel sounds, Soft Extremities: No cyanosis, No edema Skin: No significant lesion FINAL DIAGNOSIS Problems Medical Problems: (1) GI bleed Status: Acute Brief Hospital Course Mr. Charles is a 79 old [sex] who presented with [GI BLEEDING, ACUTE ] CONDITION AT DISCHARGE: Improved Discharge Medications Current Medications Ondansetron HCl (Zofran) 4 mg PRN Q8HRS PRN IV NAUSEA/VOMITING; Start 07/05/19 at 23:45; Stop 07/06/19 at 23:44; Status DC Sodium Chloride 1,000 ml @ 125 mls/hr Q8H IV Last administered on 07/06/19at 20:49; Start 07/05/19 at 23:45; Stop 07/06/19 at 23:44; Status DC Pantoprazole Sodium (PROTONIX VIAL for IV PUSH) 40 mg DAILYAC IVP Last administered on 07/06/19at 12:46; Start 07/06/19 at 11:30; Stop 07/06/19 at 16:29; Status DC Levetiracetam (Keppra) 500 mg BID PO Last administered on 07/07/19at 10:42; Start 07/06/19 at 21:00 Simvastatin (Zocor) 10 mg DAILY PO Last administered on 07/07/19at 10:42; Start 07/07/19 at 09:00 Vitamin D (Vitamin D3) 1,000 unit DAILY PO Last administered on 07/07/19 10:42; Start 07/07/19 at 09:00 Multivitamins (Thera M Plus) 1 tab DAILY PO Last administered on 07/07/19 10:42; Start 07/07/19 at 09:00 Pantoprazole Sodium (Protonix) 40 mg DAILYAC PO Last administered on 07/07/19at 07:25; Start 07/07/19 at 07:30 Active Scripts Active Reported Garlic 1,000 Mg Capsule 1,000 Mg PO DAILY One Daily Multivitamin (Multivitamin) 1 Each Tablet 1 Each PO DAILY Simvastatin 10 Mg Tablet 10 Mg PO DAILY Aspirin Ec (Aspirin) 81 Mg Tablet.dr 81 Mg PO DAILY Vitamin D (Cholecalciferol (Vitamin D3)) 1,000 Unit Capsule 1 Cap PO DAILY Keppra (Levetiracetam) 500 Mg Tablet 500 Mg PO BID Vital Signs Vital Signs Date Time Temp Pulse Resp B/P (MAP) Pulse Ox O2 Delivery O2 Flow Rate FiO2 07/07/19 11:00 97.8 63 17 99/53 (68) 95 Room Air 97.8 Labs Laboratory Tests Test 07/05/19 23:15 07/06/19 03:30 07/07/19 04:00 White Blood Count 5.0 x10^3/uL (4.0-11.0) 4.3 x10^3/uL (4.0-11.0) 5.0 x10^3/uL (4.0-11.0) Red Blood Count 3.45 x10^6/uL (4.30-5.70) 3.09 x10^6/uL (4.30-5.70) 3.13 x10^6/uL (4.30-5.70) Hemoglobin 11.3 g/dL (13.0-17.5) 10.1 g/dL (13.0-17.5) 10.1 g/dL (13.0-17.5) Hematocrit 32.3 % (39.0-53.0) 28.8 % (39.0-53.0) 29.2 % (39.0-53.0) Mean Corpuscular Volume 94 fL (79-100) 93 fL (79-100) 93 fL (79-100) Mean Corpuscular Hemoglobin 33 pg (25-35) 33 pg (25-35) 32 pg (25-35) Mean Corpuscular Hemoglobin Concent 35 g/dL (31-37) 35 g/dL (31-37) 35 g/dL (31-37) Red Cell Distribution Width 12.5 % (11.5-14.5) 12.6 % (11.5-14.5) 12.6 % (11.5-14.5) Platelet Count 205 x10^3/uL (140-400) 187 x10^3/uL (140-400) 172 x10^3/uL (140-400) Neutrophils (%) (Auto) 59 % (31-73) 51 % (31-73) Lymphocytes (%) (Auto) 29 % (24-48) 35 % (24-48) Monocytes (%) (Auto) 9 % (0-9) 10 % (0-9) Eosinophils (%) (Auto) 3 % (0-3) 4 % (0-3) Basophils (%) (Auto) 1 % (0-3) 1 % (0-3) Neutrophils # (Auto) 2.9 x10^3/uL (1.8-7.7) 2.2 x10^3/uL (1.8-7.7) Lymphocytes # (Auto) 1.4 x10^3/uL (1.0-4.8) 1.5 x10^3/uL (1.0-4.8) Monocytes # (Auto) 0.5 x10^3/uL (0.0-1.1) 0.4 x10^3/uL (0.0-1.1) Eosinophils # (Auto) 0.1 x10^3/uL (0.0-0.7) 0.2 x10^3/uL (0.0-0.7) Basophils # (Auto) 0.0 x10^3/uL (0.0-0.2) 0.0 x10^3/uL (0.0-0.2) Prothrombin Time 14.2 SEC (11.7-14.0) Prothromb Time International Ratio 1.1 (0.8-1.1) Sodium Level 143 mmol/L (136-145) 143 mmol/L (136-145) Potassium Level 4.0 mmol/L (3.5-5.1) 3.7 mmol/L (3.5-5.1) Chloride Level 107 mmol/L (98-107) 109 mmol/L (98-107) Carbon Dioxide Level 29 mmol/L (21-32) 30 mmol/L (21-32) Anion Gap 7 (6-14) 4 (6-14) Blood Urea Nitrogen 20 mg/dL (8-26) 9 mg/dL (8-26) Creatinine 1.1 mg/dL (0.7-1.3) 0.6 mg/dL (0.7-1.3) Estimated GFR (Cockcroft-Gault) 64.4 129.6 BUN/Creatinine Ratio 18 (6-20) Glucose Level 139 mg/dL (70-99) 94 mg/dL (70-99) Calcium Level 8.5 mg/dL (8.5-10.1) 8.0 mg/dL (8.5-10.1) Total Bilirubin 0.1 mg/dL (0.2-1.0) Aspartate Amino Transf (AST/SGOT) 16 U/L (15-37) Alanine Aminotransferase (ALT/SGPT) 18 U/L (16-63) Alkaline Phosphatase 62 U/L (46-116) Total Protein 5.8 g/dL (6.4-8.2) Albumin 3.2 g/dL (3.4-5.0) Albumin/Globulin Ratio 1.2 (1.0-1.7) Laboratory Tests Test 07/07/19 04:00 White Blood Count 5.0 x10^3/uL (4.0-11.0) Red Blood Count 3.13 x10^6/uL (4.30-5.70) Hemoglobin 10.1 g/dL (13.0-17.5) Hematocrit 29.2 % (39.0-53.0) Mean Corpuscular Volume 93 fL (79-100) Mean Corpuscular Hemoglobin 32 pg (25-35) Mean Corpuscular Hemoglobin Concent 35 g/dL (31-37) Red Cell Distribution Width 12.6 % (11.5-14.5) Platelet Count 172 x10^3/uL (140-400) Sodium Level 143 mmol/L (136-145) Potassium Level 3.7 mmol/L (3.5-5.1) Chloride Level 109 mmol/L (98-107) Carbon Dioxide Level 30 mmol/L (21-32) Anion Gap 4 (6-14) Blood Urea Nitrogen 9 mg/dL (8-26) Creatinine 0.6 mg/dL (0.7-1.3) Estimated GFR (Cockcroft-Gault) 129.6 Glucose Level 94 mg/dL (70-99) Calcium Level 8.0 mg/dL (8.5-10.1) Allergies Allergies Coded Allergies Type Severity Reaction Last Updated Verified No Known Drug Allergies 09/03/15 No Disposition/Orders: D/C to Home Patient Instructions D/C PLANNING 32 MIN JONN ARMSTRONG MD Jul 07, 2019 14:58
[2019-07-07] MEDS ORDERED: PANT40TA77 PO (14:59)
[2019-07-07 15:00] VITALS: BP 104/62
--- NOTE | 2019-07-07 15:00 | DISCH ---
DISCHARGE INSTRUCTIONS Condition on Discharge Condition on Discharge: Stable Activity After Discharge Activity Instructions for Disc: Activity as tolerated Exercise Instruction after Dis: Walk 10 min, 3 x per day Driving Instructions after Dis: Do not drive today, No driving for 6 months Weight Bearing Status after Di: As tolerated Diet after Discharge Diet after Discharge: Cardiac Checks after Discharge Checks after discharge: Check blood press - daily Contacting the DR. after DC Call your doctor for: If your condition worsens Treatment/Equipment after DC Adaptive Equipment Issued: None Discharge Respiratory Equipmen: JONN LORENZO MD Jul 07, 2019 15:00
--- NOTE | 2019-07-07 16:34 | NUR ---
Discharge Note: BASHIR MAYORGA Discharge instructions and discharge home medications reviewed with Patient and a copy given. All questions have been answered and understanding verbalized. The following instructions and handouts were given: Discharge Instructions, Follow Up Instructions, Prescriptions Discontinued lines and drains: PIV removed, Catheter intact. Patient discharged to Home with Self- Care via Private Vehicle
== END 2019-07-07 16:05 | disposition home or self-care (01) | DRG 377 ==
LOC: ER 22:02 → 5 SOUTH 23:34
PROVIDERS: ADMIT Internal Medicine; ATTEND Internal Medicine
DX: K57.31 Diverticulosis of large intestine without perforation or abscess with bleeding (principal); N17.0 Acute kidney failure with tubular necrosis; D62 Acute posthemorrhagic anemia; G47.33 Obstructive sleep apnea (adult) (pediatric); I10 Essential (primary) hypertension; I25.10 Atherosclerotic heart disease of native coronary artery without angina pectoris; N40.0 Benign prostatic hyperplasia without lower urinary tract symptoms; Z79.82 Long term (current) use of aspirin; M19.90 Unspecified osteoarthritis, unspecified site; Z80.0 Family history of malignant neoplasm of digestive organs; Z82.49 Family history of ischemic heart disease and other diseases of the circulatory system; Z83.3 Family history of diabetes mellitus; Z86.010 Personal history of colon polyps; Z87.19 Personal history of other diseases of the digestive system
CPT/HCPCS: 36415; 80048; 80053; 85025; 85027; 85610; 96361; 96374; C9113; J7030; 99285-25; G0378

== ENCOUNTER → 2019-10-11 | Outpatient (CLI) | payer MEDICARE ==
[~2019-10-11] MED LIST changes: +ASPI-612 PO; +GARL10002 PO; +MULT-475 PO; +REGADENOSON 0.4 MG/5 ML DISP.SYRIN. IV ONE; +SIMV10TA15 PO
--- NOTE | 2019-10-11 10:33 | CARD ---
MR#: [id number] Date of Study: 10/11/2019 Ordering Physician: RAYNA DONALD, Referring Physician: RAYNA DONALD, Tech: Ketty Wilson ANCELMO APPROVED REPORT EXAM: Two-dimensional and M-mode echocardiogram with Doppler and color Doppler. Other Information Quality : Good INDICATION Murmur 2D DIMENSIONS RVDd2.7 (2.9-3.5cm)Left Atrium(2D)3.6 (1.6-4.0cm) IVSd0.9 (0.7-1.1cm)Aortic Root(2D)3.0 (2.0-3.7cm) LVDd5.1 (3.9-5.9cm)LVOT Diameter2.0 (1.8-2.4cm) PWd0.9 (0.7-1.1cm)LVDs2.7 (2.5-4.0cm) FS (%) 30.0 %SV97.8 ml LVEF(%)60.0 (>50%) Aortic Valve AoV Peak Marc.104.3cm/sAoV VTI21.2cm AO Peak GR.4.4mmHgLVOT Peak Marc.110.3cm/s LVOT VTI 24.70cmAO Mean GR.2mmHg CECELIA (VMAX)3.64vc7JOG (VTI)3.62cm2 AI P 1/2 Bnav595sv Mitral Valve MV E Rgpuhfwo36.7cm/sMV DECEL EHKL847ns MV A Iyklsptb30.0cm/sMV BOG42le E/A Ratio0.7MVA (PHT)2.89cm2 TDI E/Lateral E'8.0E/Medial E'12.0 Tricuspid Valve TR P. Nuevephm926iw/sRAP LBILXJVA9grBv TR Peak Gr.36taWmBJMR27imZk Pulmonary Vein S1 Yboxfnvx15.0cm/sD2 Icvlsnlf12.3cm/s LEFT VENTRICLE The left ventricle is normal size. There is normal left ventricular wall thickness. The left ventricu lar systolic function is normal. The Ejection Fraction is 55-60%. There is normal LV segmental wall m otion. Transmitral Doppler flow pattern is Grade I-abnormal relaxation pattern. RIGHT VENTRICLE The right ventricle is normal size. The right ventricular systolic function is normal. ATRIA The left atrium size is normal. The right atrium size is normal. The interatrial septum is intact wit h no evidence for an atrial septal defect or patent foramen ovale as noted on 2-D or Doppler imaging. AORTIC VALVE The aortic valve is calcified but opens well. Doppler and Color Flow revealed mild aortic regurgitati on. There is no significant aortic valvular stenosis. MITRAL VALVE The mitral valve is calcified but opens well. Mitral annular calcification is mild. There is no evide nce of mitral valve prolapse. There is no mitral valve stenosis. Doppler and Color-flow revealed trac e mitral regurgitation. TRICUSPID VALVE The tricuspid valve is normal in structure and function. Doppler and Color Flow revealed trace to mil d tricuspid regurgitation. There is mild pulmonary hypertension. The PA pressure was estimated at 32 mmHg. There is no tricuspid valve stenosis. PULMONIC VALVE The pulmonic valve is not well visualized. Doppler and Color Flow revealed trace pulmonic valvular re gurgitation. There is no pulmonic valvular stenosis. GREAT VESSELS The aortic root is normal in size. The ascending aorta is normal in size. The IVC is normal in size a nd collapses >50% with inspiration. PERICARDIAL EFFUSION There is no evidence of significant pericardial effusion. Critical Notification Critical Value: No <Conclusion> The left ventricular systolic function is normal. The Ejection Fraction is 55-60%. There is normal LV segmental wall motion. Transmitral Doppler flow pattern is Grade I-abnormal relaxation pattern. Mild aortic regurgitation. Trace mitral regurgitation. Trace to mild tricuspid regurgitation. The PA pressure was estimated at 32 mmHg. There is no evidence of significant pericardial effusion. Signed by : Nick Schmid, Electronically Approved : 10/11/2019 10:33:14
--- NOTE | 2019-10-11 13:26 | RAD ---
MR#: [id number] Date of Study: 10/11/2019 Ordering Physician: RAYNA MORE, Referring Physician: AUDI SHAH Tech: EMMANUEL Taylor APPROVED REPORT Test Type: Pharmacological Stress Nurse/Tech: Malik Coelho RN Test Indications: Pre-op clearance Cardiac History: CVA, DM Medications: See Electronic Medical Record Medical History: See Electronic Medical Record Resting ECG: SR Resting Heart Rate: 65 bpm Resting Blood Pressure: 116/73mmHg Pretest Chest Pain: None Nurse/Tech Notes Lungs CTA, S1S2 Consent: The procedure was explained to the patient in lay terms. Informed consent was witnessed. Esteban eout was entered into [email or web address]. History and Stress Test performed by Malik Coelho RN Pharm. Details Pharmacologic stress testing was performed using 0.4mg per 5ml of regadenoson given intravenously ove r 7-10 seconds. Stress Symptoms No chest pain or symptoms. POST EXERCISE Reason for Termination: Infusion complete Max HR: 79 bpm Max Blood Pressure: 141/71mmHg Blood Pressure response to exercise: Normal blood pressure response during stress. Heart Rate response to exercise: normal response Chest Pain: No. Arrhythmia: No. ST Change: No. INTERPRETATION Stress EKG Conclusion: The resting EKG shows a sinus rhythm. The stress EKG shows no significant change from baseline. No EKG evidence of stress-induced ischemia. Imaging Protocol IMAGE PROTOCOL: Rest Tc-99m/stress Tc-99m 1 day Rest: Stress: Viability: Radiopharm.Tc99m RsrxrmiwvNs79e Sestamibi Mqvu08bUx 33mCi Duration 15min. 13min. Img Date 10/11/2019 10/11/2019 Inj-Img Vugb31svv. 90min. Rest Admin Site:IV - Right AntecubitalAdministrator:EMMANUEL Taylor Stress Admin Site: IV - Right AntecubitalAdministrator: AUDI EasleyTCB, ARRT (R)(N) STRESS DATA End Diast. Vol.89.0mlLVEDV index BSA53.0ml End Syst. Vol.26.0mlLVESV index BSA15.0ml Myocardial Cisd198.0gEject. Qypprnuu66.0% Stress Scores Regional WT0.00Summed WT0.00 Regional WM0.00Summed WM0.00 LV Perfusion The stress scans showed no significant abnormalities. The rest scans showed no significant abnormalities. Nuclear imaging shows no reversible ischemia or infarct. Wall Motion Left ventricular systolic function is normal with an ejection fraction of greater than 70%. LV Perf. Quant 17 Seg. SSS1.00 17 Seg. SRS3.00 17 Seg. SDS0.00 Stress Defect Extent (% LAD)0.00Rest Defect Extent (% LAD)0.60Rev. Defect Extent (% LAD)0.00 Stress Defect Extent (% LCX) 0.00Rest Defect Extent (% LCX)1.30Rev. Defect Extent (% LCX)0.00 Stress Defect Extent (% RCA)0.00Rest Defect Extent (% RCA)7.80Rev. Defect Extent (% RCA)0.00 Stress Defect Extent (% KSENIA)0.00Rest Defect Extent (% KSENIA)3.70Rev. Defect Extent (% KSENIA)0.00 Conclusion 1. No EKG evidence of stress-induced ischemia. 2. Nuclear imaging shows no reversible ischemia or infarct. 3. Normal left ventricular systolic function with an ejection fraction of greater than 70%. 4. Low risk Lexiscan nuclear stress test. Signed by : Rayna More MD Electronically Approved : 10/11/2019 13:26:02
== END | disposition home or self-care (01) ==
LOC: NM 09:13
PROVIDERS: ATTEND Internal Medicine Cardiovascular Disease
DX: Z01.818 Encounter for other preprocedural examination (principal); I08.3 Combined rheumatic disorders of mitral, aortic and tricuspid valves; I27.20 Pulmonary hypertension, unspecified; E11.9 Type 2 diabetes mellitus without complications; Z86.73 Personal history of transient ischemic attack (TIA), and cerebral infarction without residual deficits
CPT/HCPCS: 78452; 93017; 93306; A9500; J2785

== ENCOUNTER → 2019-11-08 | Outpatient (CLI) | payer MEDICARE ==
[~2019-11-08] MED LIST changes: +HYDR-3164 PO; -REGADENOSON 0.4 MG/5 ML DISP.SYRIN. IV ONE
[2019-11-08 13:07] LABS: BASO % 1 % (0-3); EOS % 1 % (0-3); HEMOGLOBIN 13.7 g/dL (13.0-17.5); LYMPH # 1.2 x10^3/uL (1.0-4.8); LYMPH % 25 % (24-48); MEAN CORPUSCULAR HEMOGLOBIN 30 pg (25-35); MEAN CORPUSCULAR HGB CONC 33 g/dL (31-37); MEAN CORPUSCULAR VOLUME 90 fL (79-100); MONO # 0.4 x10^3/uL (0.0-1.1); MONO % 7 % (0-9); NEUT # 3.3 x10^3/uL (1.8-7.7); NEUT % 66 % (31-73); PLATELET COUNT 179 x10^3/uL (140-400); RED BLOOD COUNT 4.58 x10^6/uL (4.30-5.70); WHITE BLOOD COUNT 4.9 x10^3/uL (4.0-11.0)
[2019-11-08 13:16] LABS: CREATININE 0.8 mg/dL (0.7-1.3); POTASSIUM 3.8 mmol/L (3.5-5.1)
== END | disposition home or self-care (01) ==
LOC: SURGPAT 12:32
PROVIDERS: ATTEND Surgery
DX: Z01.818 Encounter for other preprocedural examination (principal); K40.90 Unilateral inguinal hernia, without obstruction or gangrene, not specified as recurrent
CPT/HCPCS: 36415; 80048; 82040; 85025

== ENCOUNTER 2019-11-09 09:23 | Day surgery (SDC) | payer MEDICARE ==
[~2019-11-09] VITALS: Ht 162.6 cm; Wt 63.5 kg
[~2019-11-09 09:23] MED LIST changes: -HYDR-3164 PO; +HYDROmorphone 2 MG/ML VIAL IV PRN; +LIDOCAINE 1% PF 2 ML VIAL. ID PRN; +MORPHINE SULFATE 2 MG/ML VIAL. IV PRN; +ONDANSETRON PF 4 MG/2 ML VIAL. IV PRN; +PROCHLORPERAZINE 10 MG/2 ML VIAL. IV PRN; +ceFAZolin SODIUM IV Push 1 GM VIAL. IVP PRN; +fentaNYL PF VIAL 100 MCG/2 ML VIAL IV PRN
[2019-11-09] MEDS: IV RINGERS,LACTATED 1000ML 1,000 ML IV SCH (09:55)
[2019-11-09] MEDS ORDERED: LIDOCAINE 2% PF 5 ML VIAL. ONE (10:35)
[2019-11-09] MEDS ORDERED: ONDANSETRON PF 4 MG/2 ML VIAL. ONE (10:35)
[2019-11-09] MEDS ORDERED: DEXAMETHASONE SOD PHOS 20 MG/5 ML VIAL. ONE (10:35)
[2019-11-09] MEDS ORDERED: PROPOFOL 20 ML IV ONE (10:35)
[2019-11-09] MEDS ORDERED: fentaNYL PF VIAL 250 MCG/5 ML VIAL ONE (10:37)
[2019-11-09] MEDS ORDERED: ROCURONIUM 50 MG/5 ML VIAL. ONE (10:38)
[2019-11-09] MEDS ORDERED: ePHEDrine PF IN SALINE 50 MG/10 ML SYRINGE. IV ONE (12:02)
[2019-11-09] MEDS: BUPIVACAINE-EPI 0.5%-1:200000 MPF 30 ML VIAL. ONE (12:04)
--- NOTE | 2019-11-09 12:42 | PDOC ---
BRIEF OPERATIVE NOTE Date: Nov 09, 2019 Pre-Op Diagnosis left inguinal hernia Post-Op Diagnosis same, direct Procedure Performed repair with mesh Surgeon Eduardo Anesthesia Type: General (LMA) Blood Loss 10cc IV Fluid 600cc Specimens Obtained none Findings direct hernia, no evidence of an indirect hernia Complications none Operative Note # [id number] AMARILIS DOSS MD Nov 09, 2019 12:42
[2019-11-09] MEDS ORDERED: HYDR-3164 PO (12:45)
--- NOTE | 2019-11-09 12:48 | DISCH ---
DISCHARGE INSTRUCTIONS Condition on Discharge Condition on Discharge: Stable Activity After Discharge Activity Instructions for Disc: Activity as tolerated, Avoid exertion Lifting Instructions after Dis: No heavy lifting Exercise Instruction after Dis: Walk 10 min, 3 x per day Driving Instructions after Dis: Do not drive (4-5 days) Weight Bearing Status after Di: As tolerated Diet after Discharge Diet after Discharge: Cardiac Checks after Discharge Checks after discharge: Check blood press - daily Contacting the DR. after DC Call your doctor for: If your condition worsens Follow-Up Follow up with: Eduardo ten days Treatment/Equipment after DC Adaptive Equipment Issued: None Discharge Respiratory Equipmen: CPAP AMARILIS DOSS MD Nov 09, 2019 12:48
--- NOTE | 2019-11-09 12:54 | OP ---
DATE OF SURGERY: 11/09/2019 PREOPERATIVE DIAGNOSIS: Left inguinal hernia. POSTOPERATIVE DIAGNOSIS: Left inguinal hernia, direct. PROCEDURE: Repair with mesh. SURGEON: Daquan Doss MD. ANESTHESIA: General LMA. BLOOD LOSS: 10. INTRAVENOUS FLUIDS: 600 mL. INDICATIONS: The patient is an 79-year-old gentleman with left inguinal fullness and pain, brought for repair. OPERATIVE FINDINGS: A direct hernia involved the entirety of the inguinal floor. Careful inspection at the internal ring failed to reveal evidence of an indirect hernia sac. DESCRIPTION OF PROCEDURE: The patient brought to the operating suite, given a general LMA and the left groin prepped and draped in usual sterile fashion. A 0.5% Marcaine with epinephrine was infiltrated along the incision line. Incision made, dissection carried down to the external oblique fascia, which was opened in the direction of its fibers and the cord swept off the pubis. Jennifer drain placed around it. A careful inspection at the internal ring failed to reveal an indirect hernia sac. The floor of the canal was involved with a direct hernia, which was mobilized circumferentially, the neck was scored. It was reduced and held in reduction with an extra-large plug of Phasix mesh. This was tacked around the periphery with interrupted 0 PDS sutures, taking care to avoid injury to adjacent vessels. A keyhole patch was fashioned and placed over the repair, the slit closed with a single 2-0 PDS stitch and the area checked for adequate hemostasis. When present and a correct sponge count was obtained, the cord was returned to its normal anatomical position. External oblique fascia closed over a running fashion with 3-0 Vicryl. Subcutaneous approximated with 3-0 Vicryl, skin closed with a subcuticular 4-0 Monocryl. Steri-Strips and sterile dressing applied. Prior to emergence from anesthesia, digital rectal exam failed to reveal evidence of prostatic enlargement or nodularity. The patient was awakened from his anesthetic and taken to the recovery room in satisfactory condition. DAQUAN DOSS MD DR: ANAND/amandeep JOB#: [id number] / [id number]
[2019-11-09 13:05] VITALS: BP 144/71
== END 2019-11-09 14:15 | disposition home or self-care (01) ==
LOC: SURG 09:23
PROVIDERS: ATTEND Surgery
DX: K40.90 Unilateral inguinal hernia, without obstruction or gangrene, not specified as recurrent (principal); G47.30 Sleep apnea, unspecified; Z98.42 Cataract extraction status, left eye; Z98.41 Cataract extraction status, right eye; Z96.1 Presence of intraocular lens; Z98.52 Vasectomy status
CPT/HCPCS: 49505; A7015; C1781; J0690; J1100; J2001; J2405; J2704; J3010; J3490; J0171